=== PATIENT | female | born 1940 | race Caucasian/White ===

== ENCOUNTER 2019-01-09 09:19 | Emergency (ER) | payer MEDICARE, BC ==
[~2019-01-09] VITALS: Ht 165.1 cm; Wt 59.1 kg
[~2019-01-09 09:19] MED LIST: LEVO75TA4 PO
[2019-01-09 09:20] VITALS: BP 143/77
[2019-01-09] MEDS ORDERED: GABAPENTIN 100 MG CAPSULE PO ONE (09:45)
[2019-01-09] MEDS ORDERED: LIDOCAINE 5% TRANSDERMAL PATCH TD ONE (09:45)
[2019-01-09] MEDS ORDERED: PredniSONE 20 MG TABLET PO ONE (09:45)
[2019-01-09] MEDS ORDERED: ValACYclovir HCL 500 MG TABLET PO ONE (09:45)
[2019-01-09] MEDS ORDERED: IBUPROFEN 600 MG TABLET PO ONE (09:45)
== END 2019-01-09 10:13 | disposition home or self-care (01) ==
LOC: EMS 09:23
DX: B02.9 Zoster without complications (principal); Z90.710 Acquired absence of both cervix and uterus

== ENCOUNTER → 2020-04-18 | Outpatient (CLI) | payer MEDICARE, BC ==
[2020-04-18 11:42] LABS: COVID AG,FIA SOURCE NASOPHARYNGEAL
== END | disposition home or self-care (01) ==
LOC: EMS 10:17
PROVIDERS: ATTEND Internal Medicine Cardiovascular Disease
DX: Z20.828 Contact with and (suspected) exposure to other viral communicable diseases (principal)
CPT/HCPCS: 87426

== ENCOUNTER 2021-01-30 12:49 | Emergency (ER) | payer MEDICARE, BC ==
[~2021-01-30] VITALS: Ht 157.5 cm; Wt 61.8 kg
[2021-01-30 13:00] VITALS: BP 137/75
[2021-01-30] MEDS ORDERED: ACETAMINOPHEN 500 MG TABLET PO ONE (13:00)
== END 2021-01-30 13:29 | disposition home or self-care (01) ==
LOC: EMS 12:52
DX: S92.511A Displaced fracture of proximal phalanx of right lesser toe(s), initial encounter for closed fracture (principal); X58.XXXA Exposure to other specified factors, initial encounter; Y93.89 Activity, other specified; Y92.89 Other specified places as the place of occurrence of the external cause; Y99.8 Other external cause status
CPT/HCPCS: 28470; 28515; 99284; 73660-TC; Z7502; Z7610

== ENCOUNTER 2021-04-08 07:48 | Emergency (ER) | payer MEDICARE, BC ==
[2021-04-08 08:10] LABS: COVID AG,FIA SOURCE NASOPHARYNGEAL
[2021-04-08 08:45] LABS: INFLUENZA TYPE B NEGATIVE FOR TYPE B (NEGATIVE)
[2021-04-08 09:06] LABS: INFLUENZA TYPE A POSITIVE FOR TYPE A (NEGATIVE)
== END 2021-04-08 10:46 | disposition home or self-care (01) ==
LOC: EMS 07:51
DX: U07.1 COVID-19 (principal); J10.1 Influenza due to other identified influenza virus with other respiratory manifestations
CPT/HCPCS: 87426; 87804; 99283; U0003